=== PATIENT | female | born 1970 | race Caucasian/White ===

== ENCOUNTER 2016-05-12 06:20 | Emergency (ER) | payer MEDICAID, OTHER ==
[~2016-05-12] VITALS: Ht 160 cm; Wt 50.0 kg
[~2016-05-12 06:20] MED LIST: ADDE10; VIST25CA PO
[2016-05-12 06:23] VITALS: BP 136/79; PULSE 79; RESP 16; TEMP 97.7; O2SAT 100
--- NOTE | 2016-05-12 06:32 | PD ---
HPI Chief Complaint: Psychiatric Symptoms Time Seen by Provider: 06:27 Travel History International Travel<30 days: No Contact w/Intl Traveler<30days: No Traveled to known affect area: No History of Present Illness HPI 46 year-old woman, history of bipolar disorder, presents to the emergency department for bizarre behavior. Boyfriend called all enforcement today after patient was acting bizarrely. She reportedly was trying to make tea out of cigarette ashes and sugar. She was trying to light a cigarette on the stove highlight was out. She reportedly is not taking any medications because she is being studied for a trial drug. Patient cannot remember how she got here or why she is here. She denies any recent illness or injury. No other complaints. History Social History Alcohol Use: Yes Tobacco Use: Yes Allergies-Medications (Allergen,Severity, Reaction): Coded Allergies: Erythrocin (Verified Allergy, Mild, CP, NAUSEA, 10/19/15) Reported Meds & Prescriptions Reported Meds & Active Scripts Active Vistaril (Hydroxyzine Pamoate) 25 Mg Cap 25 Mg PO Q6HR FOR ITCHING Reported Adderall 10 mg (Dextroamphetamine/Amphetamine) 10 Mg Tab Review of Systems ROS Limitations: Clinical Condition Physical Exam Narrative GENERAL: Bizarre 46 year-old woman, no acute distress. SKIN: Warm and dry. HEAD: Atraumatic. Normocephalic. EYES: Pupils equal and round. No scleral icterus. No injection or drainage. ENT: No nasal bleeding or discharge. Mucous membranes pink and moist. NECK: Trachea midline. No JVD. CARDIOVASCULAR: Regular rate and rhythm. No murmur appreciated. RESPIRATORY: No accessory muscle use. Clear to auscultation. Breath sounds equal bilaterally. GASTROINTESTINAL: Abdomen soft, non-tender, nondistended. Hepatic and splenic margins not palpable. MUSCULOSKELETAL: No obvious deformities. No edema. NEUROLOGICAL: Awake and alert. Some confusion. No obvious cranial nerve deficits. Motor grossly within normal limits. Normal speech. PSYCHIATRIC: Confused, poor eye contact, some thought blocking. Flat affect. Data Data Last Documented VS Vital Signs Date Time Temp Pulse Resp B/P Pulse Ox O2 Delivery O2 Flow Rate FiO2 05/12/16 06:23 97.7 79 16 136/79 100 Orders Complete Blood Count With Diff (05/12/16 06:27) Comprehensive Metabolic Panel (05/12/16 06:27) Drug Screen, Random Urine (05/12/16 06:27) MDM Medical Decision Making Medical Screen Exam Complete: Yes Emergency Medical Condition: Yes Differential Diagnosis Bipolar disorder, psychosis, intoxication, drug use, other Narrative Course Medical decision making 46-year-old with history of bipolar cervical, presents with bizarre mental status changes. She appears psychotic with marked confusion, memory problems, follow up walking. No yasemin hallucinations or delusions. We'll check labs. Patient's medically clear for psychiatric evaluation. Mental health screening discussed with the patient. Psychiatric screen ordered. Romario Velazquez MD May 12, 2016 06:32
[2016-05-12 07:13] LABS: AMPHETAMINE, URINE NEG (NEG); BARBITURATES, URINE NEG (NEG); COCAINE, URINE NEG (NEG)
[2016-05-12 08:03] LABS: ALKALINE PHOSPHATASE 235 U/L (45-117); ALT (GPT) 95 U/L (10-53); ANION GAP 9 MEQ/L (5-15); AST (GOT) 151 U/L (15-37); BETA HCG QUANT LESS THAN 1 MIU/ML (0-5); BICARBONATE 21.1 MEQ/L (21.0-32.0); BLOOD UREA NITROGEN 14 MG/DL (7-18); CHLORIDE 105 MEQ/L (98-107); GLOMERULAR FILTRATION RATE 57 ML/MIN (>89); SODIUM (NA) 135 MEQ/L (136-145); TOTAL BILIRUBIN ADULT 0.8 MG/DL (0.2-1.0)
[2016-05-12 08:20] LABS: HEMATOCRIT 32.5 % (35.0-46.0); MEAN CORPUSCULAR HEMOGLOBIN 24.2 PG (27.0-34.0); PLATELET COUNT 75 TH/MM3 (150-450); RED BLOOD COUNT 4.57 MIL/MM3 (4.00-5.30); RED CELL DISTRIBUTION WIDTH 22.5 % (11.6-17.2); WHITE BLOOD COUNT 9.4 TH/MM3 (4.0-11.0)
[2016-05-12 08:23] LABS: HEMO FLAGS AUTO DIFF
[2016-05-12 09:16] LABS: BANDS 18 % (0-6); EOSINOPHILS 1 % (0-4); NEUTROPHIL # MANUAL DIFF 7.4 TH/MM3 (1.8-7.7); POLYS (SEG NEUTROPHILS) 61 % (16-70); WBC DIFF SAMPLE 100
[2016-05-12 09:17] LABS: PLATELET ESTIMATE SMEAR LOW (NORMAL); PLATELET MORPHOLOGY NORMAL (NORMAL)
[2016-05-12 09:18] LABS: SCAN/DIFF FINAL DIFF MANUAL; TARGET CELLS 1+ (NORMAL)
--- NOTE | 2016-05-12 09:29 | PD ---
Physical Exam Date Seen by Provider: May 12, 2016 Time Seen by Provider: 07:00 Narrative Patient signed out to me by Dr. Velazquez at 7 AM, awaiting medical clearance, lab work. Patient apparently has been behaving erratically at home. Denies any suicidal ideation. Physical exam is essentially unremarkable except for abnormal behavior. Laboratory Tests Test 05/12/16 05/12/16 05/12/16 06:50 07:15 08:10 Urine Benzodiazepines Screen POS (NEG) Urine Cannabinoids Screen POS (NEG) Sodium Level 135 MEQ/L (136-145) Creatinine 1.05 MG/DL (0.50-1.00) Estimat Glomerular Filtration 57 ML/MIN (>89) Rate Aspartate Amino Transf 151 U/L (15-37) (AST/SGOT) Alanine Aminotransferase 95 U/L (10-53) (ALT/SGPT) Alkaline Phosphatase 235 U/L (45-117) Albumin 2.2 GM/DL (3.4-5.0) Salicylates Level LESS THAN 1.7 MG/DL (2.8-20.0) Acetaminophen Level LESS THAN 2.0 MCG/ML (10.0-30.0) Hemoglobin 11.0 GM/DL (11.6-15.3) Hematocrit 32.5 % (35.0-46.0) Mean Corpuscular Volume 71.0 FL (80.0-100.0) Mean Corpuscular Hemoglobin 24.2 PG (27.0-34.0) Red Cell Distribution Width 22.5 % (11.6-17.2) Platelet Count 75 TH/MM3 (150-450) Band Neutrophils % 18 % (0-6) Platelet Estimate LOW (NORMAL) Target Cells 1+ (NORMAL) Lab work shows benzodiazepines and cannabis within her system. Abdomen is benign. Her LFT is mildly elevated and it was elevated in the past study as well. Patient is not in any distress, denies any ingestion. She is eating without issues. At this point, Tylenol and salicylate levels are also negligible. My plan would be to medically clear for psychiatric evaluation. She has been told to follow-up with her primary care physician regarding elevated liver enzymes. Data Data Last Documented VS Vital Signs Date Time Temp Pulse Resp B/P Pulse Ox O2 Delivery O2 Flow Rate FiO2 05/12/16 06:23 97.7 79 16 136/79 100 Orders Complete Blood Count With Diff (05/12/16 06:27) Comprehensive Metabolic Panel (05/12/16 06:27) Drug Screen, Random Urine (05/12/16 06:27) Alcohol (Ethanol) (05/12/16 06:27) Beta Hcg (Quant/Titer) (05/12/16 06:27) Psych Screen (05/12/16 06:27) Ed Urine Pregnancytest Poc (05/12/16 06:59) Salicylates (Aspirin) (05/12/16 08:09) Tylenol (Acetaminophen) (05/12/16 08:09) Labs Laboratory Tests Test 05/12/16 05/12/16 05/12/16 06:50 07:15 08:10 Urine Opiates Screen NEG Urine Barbiturates Screen NEG Urine Amphetamines Screen NEG Urine Benzodiazepines Screen POS Urine Cocaine Screen NEG Urine Cannabinoids Screen POS Sodium Level 135 MEQ/L Potassium Level 5.0 MEQ/L Chloride Level 105 MEQ/L Carbon Dioxide Level 21.1 MEQ/L Anion Gap 9 MEQ/L Blood Urea Nitrogen 14 MG/DL Creatinine 1.05 MG/DL Estimat Glomerular Filtration 57 ML/MIN Rate Random Glucose 87 MG/DL Calcium Level 8.6 MG/DL Total Bilirubin 0.8 MG/DL Aspartate Amino Transf 151 U/L (AST/SGOT) Alanine Aminotransferase 95 U/L (ALT/SGPT) Alkaline Phosphatase 235 U/L Total Protein 8.2 GM/DL Albumin 2.2 GM/DL Human Chorionic Gonadotropin, LESS THAN 1 Quant MIU/ML Salicylates Level LESS THAN 1.7 MG/DL Acetaminophen Level LESS THAN 2.0 MCG/ML Ethyl Alcohol Level LESS THAN 3 MG/DL White Blood Count 9.4 TH/MM3 Red Blood Count 4.57 MIL/MM3 Hemoglobin 11.0 GM/DL Hematocrit 32.5 % Mean Corpuscular Volume 71.0 FL Mean Corpuscular Hemoglobin 24.2 PG Mean Corpuscular Hemoglobin 34.0 % Concent Red Cell Distribution Width 22.5 % Platelet Count 75 TH/MM3 Mean Platelet Volume 9.0 FL Neutrophils (%) (Auto) % Lymphocytes (%) (Auto) % Monocytes (%) (Auto) % Eosinophils (%) (Auto) % Basophils (%) (Auto) % Neutrophils # (Auto) TH/MM3 Lymphocytes # (Auto) TH/MM3 Monocytes # (Auto) TH/MM3 Eosinophils # (Auto) TH/MM3 Basophils # (Auto) TH/MM3 CBC Comment AUTO DIFF Differential Total Cells 100 Counted Neutrophils % (Manual) 61 % Band Neutrophils % 18 % Lymphocytes % 16 % Monocytes % 4 % Eosinophils % 1 % Neutrophils # (Manual) 7.4 TH/MM3 Differential Comment FINAL DIFF MANUAL Atypical Lymphocytes % Platelet Estimate LOW Platelet Morphology Comment NORMAL Target Cells 1+ MDM Medical Record Reviewed: Yes Supervised Visit with ELENI: No Diagnosis Primary Impression: UNSP PSYCHOSIS NOT DUE TO A SUBSTANCE OR KNOWN PHYSIOL COND Additional Impression: Elevated liver enzymes Scripts Unable to Obtain Active Prescriptions or Reported Meds Disposition: 65 DISC TO PSYCH CARE FACILITY Condition: Stable Tariq Schulte MD May 12, 2016 09:29
[2016-05-12] MEDS: IBUPROFEN 400 MG TAB PO SCH ×2 (14:34→22:00)
[2016-05-12 15:05] VITALS: BP 158/76; PULSE 68; RESP 16; TEMP 96.6; O2SAT 99
[2016-05-12] MEDS ORDERED: OLANZapine ODT 5 MG TAB PO ONE (15:45)
[2016-05-12] MEDS ORDERED: XANA1TAB2 PO (17:19)
[2016-05-12] MEDS ORDERED: CYCL1TAB29 PO (17:20)
[2016-05-12] MEDS ORDERED: PHEN1LIQ60 (17:21)
[2016-05-12 22:21] VITALS: BP 116/74; PULSE 86; RESP 18; O2SAT 96
[2016-05-13 02:34] VITALS: BP 115/62; PULSE 80; RESP 18; O2SAT 97
[2016-05-13] MEDS: IBUPROFEN 400 MG TAB PO SCH (06:00)
[2016-05-13 06:14] VITALS: BP 117/58; PULSE 64; RESP 18; O2SAT 99
== END 2016-05-13 09:13 ==
LOC: NEPC 06:20 → NEPJ 05-13 09:13
DX: F29 Unspecified psychosis not due to a substance or known physiological condition (principal); R74.8 Abnormal levels of other serum enzymes; R41.0 Disorientation, unspecified; R41.82 Altered mental status, unspecified; Z72.0 Tobacco use; Z86.59 Personal history of other mental and behavioral disorders
CPT/HCPCS: 80053; 80307; 80320; 80329; 84702; 84703; 85007; 85027; 99283; G0480

== ENCOUNTER 2016-12-05 05:38 | Inpatient (IN) | payer MEDICAID, OTHER ==
[~2016-12-05] VITALS: Ht 152.4 cm; Wt 41.7 kg
[~2016-12-05 05:38] MED LIST changes: -ADDE10; +CYCL1TAB29 PO; +PHEN1LIQ60; -VIST25CA PO; +XANA1TAB2 PO
--- NOTE | 2016-12-05 05:50 | PD ---
HPI Chief Complaint: BA Time Seen by Provider: 05:49 Travel History International Travel<30 days: No Contact w/Intl Traveler<30days: No Traveled to known affect area: No History of Present Illness HPI This is a 46-year-old female presents under Madsen act initiated by the Police Department. According to the Madsen act form, "I responded to [id number] [employer] in reference to a mentally ill person. Contact was made with Miss Lucero who was standing in front of the neighbor's residence acting erratic. She had first said she was not going to talk to anyone until her transactional attorney was present. She was rambling on saying her boyfriend locked her out of her residence." Upon initial examination the patient is acting bizarre, agitated, hyper verbose. She is uncooperative with history or examination. She endorses crack abuse tonight, she otherwise provides no meaningful history. PFSH Past Medical History Blood Disorders: No Bipolar Disorder: Yes (peronality disorder) Anxiety: Yes Depression: Yes Cancer: No Cardiovascular Problems: No Diminished Hearing: No Endocrine: No Gastrointestinal Disorders: No Genitourinary: No Immune Disorder: No Musculoskeletal: No Neurologic: No Psychiatric: Yes Respiratory: No Past Surgical History Abdominal Surgery: Yes (hernia x 2) Gynecologic Surgery: Yes (D&C) Other Surgery: Yes Social History Alcohol Use: Yes (daily ) Tobacco Use: Yes Substance Use: Yes (MARAJUANA DAILY; XANAX DAILY; NYQUIL DAILY) Allergies-Medications (Allergen,Severity, Reaction): Coded Allergies: erythromycin base (Unverified Allergy, Mild, CP, NAUSEA, 12/05/16) Reported Meds & Prescriptions Reported Meds & Active Scripts Active Reported Xanax (Alprazolam) 1 Mg Tab 1 Mg PO BID PRN Review of Systems ROS Limitations: Psychotic Except as stated in HPI: all other systems reviewed are Neg Physical Exam Exam Limitations: Psychotic Narrative GENERAL: Disheveled and thin appearing female who is agitated, hyper verbose and anxious. Resultant tachycardia. SKIN: Warm and dry. HEAD: Atraumatic. Normocephalic. EYES: Pupils equal and round. No scleral icterus. No injection or drainage. ENT: No nasal bleeding or discharge. Mucous membranes pink and moist. NECK: Trachea midline. No JVD. CARDIOVASCULAR: Regular rate and rhythm. No murmur appreciated. RESPIRATORY: No accessory muscle use. Clear to auscultation. Breath sounds equal bilaterally. GASTROINTESTINAL: Abdomen soft, non-tender, nondistended. Hepatic and splenic margins not palpable. MUSCULOSKELETAL: No obvious deformities. No clubbing. No cyanosis. No edema. NEUROLOGICAL: Awake and alert. No obvious cranial nerve deficits. Motor grossly within normal limits. Pressured speech. PSYCHIATRIC: Elevated mood, agitated, anxious. Insight and judgment are impaired. Data Data Last Documented VS Vital Signs Date Time Temp Pulse Resp B/P (MAP) Pulse Ox O2 Delivery O2 Flow Rate FiO2 12/05/16 07:15 77 18 101/56 (71) 100 12/05/16 06:07 98.1 Orders Orders Complete Blood Count With Diff (12/05/16 05:41) Comprehensive Metabolic Panel (12/05/16 05:41) Ed Urine Pregnancytest Poc (12/05/16 05:41) Psych Screen (12/05/16 05:41) Drug Screen, Random Urine (12/05/16 05:41) Alcohol (Ethanol) (12/05/16 05:41) Salicylates (Aspirin) (12/05/16 05:41) Tylenol (Acetaminophen) (12/05/16 05:41) Olanzapine Inj (Zyprexa Inj) (12/05/16 06:00) Lorazepam Inj (Ativan Inj) (12/05/16 06:00) Sodium Chlor 0.9% 1000 Ml Inj (Ns 1000 M (12/05/16 05:58) ^ Sitter (12/05/16 06:26) Restraints Non-Violent DAHLIA.Q3H (12/05/16 06:26) Diet Regular Basic (12/05/16 Breakfast) Admit Order (Ed Use Only) (12/05/16 11:54) Labs Laboratory Tests Test 12/05/16 05:55 White Blood Count 11.8 TH/MM3 Red Blood Count 5.00 MIL/MM3 Hemoglobin 10.8 GM/DL Hematocrit 34.7 % Mean Corpuscular Volume 69.4 FL Mean Corpuscular Hemoglobin 21.6 PG Mean Corpuscular Hemoglobin Concent 31.1 % Red Cell Distribution Width 19.5 % Platelet Count 135 TH/MM3 Mean Platelet Volume 8.8 FL Neutrophils (%) (Auto) 68.6 % Lymphocytes (%) (Auto) 19.7 % Monocytes (%) (Auto) 10.4 % Eosinophils (%) (Auto) 0.9 % Basophils (%) (Auto) 0.4 % Neutrophils # (Auto) 8.1 TH/MM3 Lymphocytes # (Auto) 2.3 TH/MM3 Monocytes # (Auto) 1.2 TH/MM3 Eosinophils # (Auto) 0.1 TH/MM3 Basophils # (Auto) 0.0 TH/MM3 CBC Comment DIFF FINAL Differential Comment Blood Urea Nitrogen 10 MG/DL Creatinine 0.97 MG/DL Random Glucose 99 MG/DL Total Protein 8.1 GM/DL Albumin 3.6 GM/DL Calcium Level 8.8 MG/DL Alkaline Phosphatase 69 U/L Aspartate Amino Transf (AST/SGOT) 46 U/L Alanine Aminotransferase (ALT/SGPT) 39 U/L Total Bilirubin 1.1 MG/DL Sodium Level 136 MEQ/L Potassium Level 3.6 MEQ/L Chloride Level 106 MEQ/L Carbon Dioxide Level 18.3 MEQ/L Anion Gap 12 MEQ/L Estimat Glomerular Filtration Rate 62 ML/MIN Salicylates Level LESS THAN 1.7 MG/DL Urine Opiates Screen NEG Acetaminophen Level LESS THAN 2.0 MCG/ML Urine Barbiturates Screen NEG Urine Amphetamines Screen NEG Urine Benzodiazepines Screen POS Urine Cocaine Screen POS Urine Cannabinoids Screen POS Ethyl Alcohol Level LESS THAN 3 MG/DL MDM Medical Decision Making Medical Screen Exam Complete: Yes Emergency Medical Condition: Yes Medical Record Reviewed: Yes Differential Diagnosis Substance induced mood disorder, acute psychosis, bipolar disorder, schizoaffective disorder, delirium, encephalitis, meningitis Narrative Course 46-year-old female presents under Madsen act for bizarre behavior. She versus crack abuse tonight. She is quite agitated, anxious, hyperverbal was. Therefore 10 mg of Zyprexa IM were administered. Additional 1 L fluid, 0.5 mg of Ativan were added several minutes later. Chart review reveals previous visits in regards to substance/psychiatric visits. Mental health screening discussed with the patient. Psychiatric screen ordered. Drug screen positive for cocaine, benzodiazepines, cannabinoids. The patient is medically cleared for psychiatric disposition. Diagnosis Primary Impression: Drug-induced mood disorder Daniele Parks Dec 05, 2016 05:50
[2016-12-05] MEDS ORDERED: SODIUM CHLOR 0.9% 1000 ML INJ 1,000 ML IV SCH (05:58)
[2016-12-05] MEDS ORDERED: LORazepam 2 MG/ML VIAL IV PUSH ONE (06:00)
[2016-12-05] MEDS ORDERED: OLANZapine IM 10 MG VIAL IM ONE (06:00)
[2016-12-05 06:07] VITALS: BP 115/70; PULSE 85; RESP 20; TEMP 98.1; O2SAT 100
[2016-12-05 06:27] LABS: AUTOMATED NEUTROPHIL # 8.1 TH/MM3 (1.8-7.7); BASOPHIL % 0.4 % (0.0-2.0); EOSINOPHIL # 0.1 TH/MM3 (0-0.4); EOSINOPHIL % 0.9 % (0.0-4.0); HEMATOCRIT 34.7 % (35.0-46.0); HEMO FLAGS DIFF FINAL; LYMPH % 19.7 % (9.0-44.0); LYMPHOCYTE # 2.3 TH/MM3 (1.0-4.8); MEAN CELL VOLUME 69.4 FL (80.0-100.0); MEAN CORPUSCULAR HEMOGLOBIN 21.6 PG (27.0-34.0); MEAN CORPUSCULAR HGB CONC 31.1 % (32.0-36.0); MONO % 10.4 % (0.0-8.0); NEUT % 68.6 % (16.0-70.0); PLATELET COUNT 135 TH/MM3 (150-450); RED CELL DISTRIBUTION WIDTH 19.5 % (11.6-17.2); WHITE BLOOD COUNT 11.8 TH/MM3 (4.0-11.0)
[2016-12-05 07:15] VITALS: BP 101/56; PULSE 77; RESP 18; O2SAT 100
[2016-12-05 07:32] LABS: ANION GAP 12 MEQ/L (5-15); BICARBONATE 18.3 MEQ/L (21.0-32.0); BLOOD UREA NITROGEN 10 MG/DL (7-18); CHLORIDE 106 MEQ/L (98-107); GLOMERULAR FILTRATION RATE 62 ML/MIN (>89); POTASSIUM 3.6 MEQ/L (3.5-5.1); SODIUM (NA) 136 MEQ/L (136-145)
[2016-12-05 07:33] LABS: ALT (GPT) 39 U/L (10-53); AST (GOT) 46 U/L (15-37)
[2016-12-05 07:34] LABS: ALCOHOL LESS THAN 3 MG/DL (0-5)
[2016-12-05 07:36] LABS: ALKALINE PHOSPHATASE 69 U/L (45-117); TOTAL BILIRUBIN ADULT 1.1 MG/DL (0.2-1.0)
[2016-12-05 07:41] LABS: ACETAMINOPHEN LESS THAN 2.0 MCG/ML (10.0-30.0)
[2016-12-05 12:00] VITALS: BP 146/63; PULSE 90; RESP 18; O2SAT 100
[2016-12-05] MEDS ORDERED: ALUMINUM/MAGNESIUM/SIMETH 30 ML CUP PO PRN (12:00)
[2016-12-05] MEDS ORDERED: ACETAMINOPHEN 325 MG TAB PO PRN (12:00)
[2016-12-05] MEDS ORDERED: LORazepam 0.5 MG TAB PO PRN (12:00)
[2016-12-05] MEDS ORDERED: MAGNESIUM HYDROXIDE SUSP 30 ML CUP PO PRN (12:00)
[2016-12-05] MEDS ORDERED: LORazepam 2 MG/ML VIAL IM PRN ×2 (12:00)
--- NOTE | 2016-12-05 12:13 | HHI.HP ---
Provisional Diagnosis Admission Date [place] I. Brief psychotic disorder Certification of Person's Competence To Provide Express and Informed Consent I have personally examined Christy Lucero , a person being served at [facility] on, Dec 05, 2016 11:59. Express and informed consent means consent voluntarily given in writing, by a competent person, after sufficient explanation and disclosure of the subject matter involved to enable the person to make a knowing and willful decision without any element of force, fraud, deceit, duress, or other form of constraint or coercion. This person is 18 years of age or older, is not now known to be incompetent to consent to treatment with a guardian advocate, and does not have a health care surrogate or proxy currently making medical treatment decisions. I have found this person to be one of the following: [] Competent to provide express and informed consent, as defined above, for voluntary admission to this facility and is competent to provide express and informed consent for treatment. He/she has the consistent capacity to make well reasoned, willful, and knowing decisions concerning his or her medical or mental health treatment. The person fully and consistently understands the purpose of the admission for examination/placement and is fully capable of personally exercising all rights [place] [x] Incompetent to provide express and informed consent to voluntary admission, and this is incompetent to provide express and informed consent to treatment. The person must be transferred to involuntary status and a petition for a guardian advocate filed with the Circuit Court. [] Refusing to provide express and informed consent to voluntary admission but is competent to provide express and informed consent for treatment. The person must be discharged or transferred to involuntary status. Form shall be completed within 24 hours of a person's arrival at the receiving facility and filed in the clinical record of each person: 1. Admitted on a voluntary basis 2. Permitted to provide express and informed consent to his/her own treatment 3. Allowed to transfer from involuntary to voluntary status 4. Prior to permitting a person to consent to his or her own treatment after having been previously found incompetent to consent to treatment. History of Present Illness Capacity: Lacks Capacity HPI This is a 46-year-old female presenting under a Madsen act, with a history of bipolar disorder, currently very agitated and very psychotic. The patient is in restraints and has already received injections of antipsychotic medication. She is rambling incoherently and is a very poor historian. According to the Madsen act, law enforcement met her at a neighbor's residence, due to the patient 's erratic behavior. She told law enforcement she would not talk with anyone until her steam drier tender was present. She rambled about her boyfriend kicking her out of her residence. She was uncooperative with the examination by law enforcement and she is still uncooperative with this physician. Patient is positive for cocaine, marijuana and benzos. However, she is well aware of the psychotropic medications she has taken in the past, including lithium, for her bipolar disorder. She states she will not take psychotropic medications. She is aware of her diagnosis of bipolar disorder. At this point the patient is homeless. She is obviously unable to care for herself as she rambles incoherently and makes no sense. She is highly agitated and states she is being persecuted by someone named "Osmin". She demonstrates frequent looseness of associations as well as paranoid ideation. She is emotionally distraught, vacillating between crying and yelling. She is afraid of this hospital, this physician and medications. However, she cannot clearly or logically provide any plan to care for herself. Review of Systems Except as stated in HPI: all other systems reviewed are Neg Past Psych History Psychological trauma history Patient admits to a history of having bipolar disorder and admits to the history of taking psychotropic medication. However she is refusing to take medication at this time. Violence risk - others (6 mos) High. The patient is threatening and aggressive towards this physician. Violence risk - self (6 mos) High. The patient is quite unable to care for herself or make good decisions. She is impulsive and intrusive. Substance Abuse History Drugs/Alcohol past 12 months Patient admits to using cocaine and marijuana. She does not admit to using benzodiazepines. Past Family Social History Coded Allergies: erythromycin base (Unverified Allergy, Mild, CP, NAUSEA, 11/28/16) Reported Medications Lntjmxlazsvqt-Dblsgbtqgw-PA-Apap Liq (Nyquil Severe Cold/Flu Liq) 5-6.25-10-325 Mg/15 Ml Liq, 4 X DAY 05/12/16 Cyclobenzaprine (Flexeril) 10 Mg Tab, 10 MG PO BID for Muscle Spasm, #90 TAB 0 Refills 05/12/16 Alprazolam (Xanax) 1 Mg Tab, 1 MG PO BID Y for ANXIETY, TAB 0 Refills 05/12/16 [place] meds listed above. The patient is telling this physician that she takes no medicines. Family History Patient is unable to provide a family history. Social History The patient reports she lives in [facility]. She is unemployed. She appears to have a roommate but states she is being taken advantage of. She obviously uses illicit drugs. Patient's Strengths (min. 2) Resilient and has access to healthcare. Physical Exam GENERAL: SKIN: Warm and dry. HEAD: Normocephalic. EYES: No scleral icterus. No injection or drainage. NECK: Supple, trachea midline. No JVD or lymphadenopathy. CARDIOVASCULAR: Regular rate and rhythm without murmurs, gallops, or rubs. RESPIRATORY: Breath sounds equal bilaterally. No accessory muscle use. GASTROINTESTINAL: Abdomen soft, non-tender, nondistended. MUSCULOSKELETAL: No cyanosis, or edema. BACK: Nontender without obvious deformity. No CVA tenderness. Vital Signs Vital Signs Date Time Temp Pulse Resp B/P (MAP) Pulse Ox O2 Delivery O2 Flow Rate FiO2 12/05/16 07:15 77 18 (85) 100 12/05/16 06:07 98.1 Mental Status Examination Speech: Pressured, Rapid Orientation: Person, Place Memory: Impaired (describe) (unable to focus.) Thought Process: Loose Association Thought Content: Bizarre thinking, Paranoid Hallucination Type: None Attention and Concentration: Easily Distracted Suicidal Ideation: No Previous Suicide Attempts: No Homicidal Ideation: No Previous Homicide Attempts: No Insight: Poor Judgment: Impulsive, Poor, Unrealistic Affect: Anxious, Oppositional Mood: Appropriate, Oppositional, Anxious Motor Activity: Normal gait Assessment & Plan Problem List: (1) Brief psychotic disorder ICD Codes: F23 - Brief psychotic disorder Assessment & Plan Estimated LOS: days 46-year-old female with history of bipolar disorder that appears to be having a psychotic episode, possibly as a result of recent drug abuse. At this point the patient is obviously manic with loose associations, rapid and pressured speech, hysterical behavior and labile affect, disorganized , paranoid, impulsive and unable to care for herself. She is disorganized and confused and disoriented. For these reasons she is being admitted for evaluation and stabilization. The patient will have a CBC and comprehensive metabolic profile to determine if any infectious or metabolic process is causing or contributing to her psychosis. Additionally, we will check her vitamin B-12, vitamin D and thyroid stimulating hormone levels to determine if any abnormalities in these areas are causing or contributing to her psychosis. She will have an EKG to determine if she is at risk for cardiac conduction abnormalities if she is placed on antipsychotic medication. This physician spoke with the patient's nurse and learn the patient's erratic and psychotic behavior has been occurring for hours. The patient is not competent to provide informed consent and therefore this physician will document accordingly. Additionally, a second opinion will be sought for psychiatric civil commitment. Case management will be involved to gather more information and assist with disposition planning. Williams Mullen MD Dec 05, 2016 12:13
[2016-12-05 16:59] VITALS: BP 151/70; PULSE 94; RESP 18; TEMP 97.9; O2SAT 100
[2016-12-05] MEDS: LORazepam 1 MG TAB PO PRN ×2 (20:43→21:30)
[2016-12-06 05:55] VITALS: BP 131/87; PULSE 98; RESP 17; TEMP 98.1; O2SAT 99
[2016-12-06 07:59] LABS: AUTOMATED NEUTROPHIL # 2.3 TH/MM3 (1.8-7.7); BASOPHIL % 0.6 % (0.0-2.0); EOSINOPHIL # 0.1 TH/MM3 (0-0.4); EOSINOPHIL % 2.6 % (0.0-4.0); HEMATOCRIT 34.1 % (35.0-46.0); HEMO FLAGS DIFF FINAL; LYMPH % 34.6 % (9.0-44.0); LYMPHOCYTE # 1.6 TH/MM3 (1.0-4.8); MEAN CELL VOLUME 69.8 FL (80.0-100.0); MEAN CORPUSCULAR HEMOGLOBIN 21.6 PG (27.0-34.0); MEAN CORPUSCULAR HGB CONC 30.9 % (32.0-36.0); MONO % 9.9 % (0.0-8.0); NEUT % 52.3 % (16.0-70.0); PLATELET COUNT 101 TH/MM3 (150-450); RED BLOOD COUNT 4.88 MIL/MM3 (4.00-5.30); WHITE BLOOD COUNT 4.5 TH/MM3 (4.0-11.0)
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
[2016-12-06 08:29] LABS: ANION GAP 8 MEQ/L (5-15); AST (GOT) 41 U/L (15-37); BICARBONATE 23.2 MEQ/L (21.0-32.0); BLOOD UREA NITROGEN 11 MG/DL (7-18); CHLORIDE 107 MEQ/L (98-107); GLOMERULAR FILTRATION RATE 80 ML/MIN (>89); POTASSIUM 3.4 MEQ/L (3.5-5.1); SODIUM (NA) 138 MEQ/L (136-145)
[2016-12-06] MEDS ORDERED: FLUMAZENIL 0.5 MG/5 ML VIAL IV PUSH PRN (08:30)
[2016-12-06] MEDS ORDERED: LORazepam 2 MG/ML VIAL IV PUSH PRN ×4 (08:30→09:00)
[2016-12-06 08:31] LABS: ALT (GPT) 38 U/L (10-53)
[2016-12-06 08:56] LABS: ALKALINE PHOSPHATASE 60 U/L (45-117); HDL CHOLESTEROL 66.8 MG/DL (40.0-60.0); LDL CHOLESTEROL 56 MG/DL (0-99); TOTAL BILIRUBIN ADULT 0.5 MG/DL (0.2-1.0)
[2016-12-06] MEDS: REMOVE OLD PATCH T-DERMAL SCH (09:00)
[2016-12-06] MEDS ORDERED: LORazepam 2 MG TAB PO PRN (09:00)
[2016-12-06] MEDS: LORazepam 1 MG TAB PO PRN ×2 (09:06→20:55)
[2016-12-06] MEDS: NICOTINE 21 MG/24 HR PATCH T-DERMAL SCH (09:06)
[2016-12-06 10:57] LABS: HEMOGLOBIN A1a 1.6 %; HEMOGLOBIN A1b 1.4 %; HEMOGLOBIN Ao 86.3 %; HEMOGLOBIN P3 3.3 %
[2016-12-06 19:15] VITALS: BP 151/74; PULSE 90; RESP 18; TEMP 98.2; O2SAT 99
[2016-12-06 19:51] VITALS: BP 151/74; PULSE 90; RESP 18; TEMP 98.2; O2SAT 90
--- NOTE | 2016-12-06 20:01 | EKG ---
Date Performed: 12/05/2016 Time Performed: 13:42:45 PTAGE: 46 years EKG: Sinus rhythm NORMAL ECG PREVIOUS TRACING : 04/20/2015 10.59 Compared to prior tracing no significant change DOCTOR: Maxi Díaz Interpretating Date/Time 12/06/2016 19:59:48
[2016-12-06] MEDS: hydrOXYzine HCL 50 MG TAB PO PRN (20:55)
[2016-12-07] MEDS: LORazepam 1 MG TAB PO PRN ×2 (00:40→09:50)
[2016-12-07 05:38] VITALS: BP 129/83; PULSE 103; RESP 17; TEMP 98.1; O2SAT 99
[2016-12-07] MEDS ORDERED: POTASSIUM CHLORIDE 20 MEQ CONTROLLED RELEASE TAB PO ONE (08:00)
[2016-12-07] MEDS: REMOVE OLD PATCH T-DERMAL SCH (09:00)
[2016-12-07] MEDS: hydrOXYzine HCL 50 MG TAB PO PRN (09:50)
[2016-12-07] MEDS: NICOTINE 21 MG/24 HR PATCH T-DERMAL SCH (09:50)
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
== END 2016-12-07 13:15 | disposition home or self-care (01) | DRG 882 ==
LOC: NEPD 05:38 → NEDA 11:56 → H270 15:31
PROVIDERS: ADMIT Psychiatry & Neurology Psychiatry; ATTEND Psychiatry & Neurology Psychiatry
DX: F43.25 Adjustment disorder with mixed disturbance of emotions and conduct (principal); Z78.1 Physical restraint status; F14.10 Cocaine abuse, uncomplicated; F41.1 Generalized anxiety disorder; F31.9 Bipolar disorder, unspecified; Z59.0 Homelessness; Z72.0 Tobacco use; F12.90 Cannabis use, unspecified, uncomplicated; F19.10 Other psychoactive substance abuse, uncomplicated
CPT/HCPCS: 80053; 80061; 80307; 82306; 82607; 83036; 84443; 84703; 85025; 93005; 96361; 96372; 96374; J2060; J7030

== ENCOUNTER 2016-12-20 07:56 | Emergency (ER) | payer MEDICAID, OTHER ==
[2016-12-20 08:06] VITALS: BP 108/55; PULSE 83; RESP 20; TEMP 97.7; O2SAT 100
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
[2016-12-20 08:42] LABS: HEMATOCRIT 32.8 % (35.0-46.0); MEAN CELL VOLUME 71.1 FL (80.0-100.0); MEAN CORPUSCULAR HEMOGLOBIN 22.5 PG (27.0-34.0); MEAN CORPUSCULAR HGB CONC 31.6 % (32.0-36.0); PLATELET COUNT 45 TH/MM3 (150-450); RED BLOOD COUNT 4.61 MIL/MM3 (4.00-5.30); RED CELL DISTRIBUTION WIDTH 20.3 % (11.6-17.2); WHITE BLOOD COUNT 6.6 TH/MM3 (4.0-11.0)
[2016-12-20 08:44] LABS: HEMO FLAGS AUTO DIFF
[2016-12-20 09:29] LABS: BICARBONATE 19.4 MEQ/L (21.0-32.0); POTASSIUM 3.1 MEQ/L (3.5-5.1)
[2016-12-20 09:37] LABS: BANDS 19 % (0-6); EOSINOPHILS 1 % (0-4); MYELOCYTES 1 % (0-0); NEUTROPHIL # MANUAL DIFF 5.5 TH/MM3 (1.8-7.7); PLATELET ESTIMATE SMEAR LOW (NORMAL); PLATELET MORPHOLOGY NORMAL (NORMAL); POLYS (SEG NEUTROPHILS) 64 % (16-70); SCAN/DIFF FINAL DIFF MANUAL; WBC DIFF SAMPLE 100
[2016-12-20] MEDS ORDERED: POTASSIUM CHLORIDE 20 MEQ CONTROLLED RELEASE TAB PO ONE (10:00)
[2016-12-20 10:40] VITALS: BP 114/65; PULSE 74; RESP 16; O2SAT 98
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
[2016-12-20 16:48] VITALS: BP 114/65; PULSE 74; RESP 16; O2SAT 98
== END 2016-12-20 18:56 | disposition home or self-care (01) ==
LOC: NEPE 07:56 → NEPJ 18:56
DX: F14.14 Cocaine abuse with cocaine-induced mood disorder (principal); F31.9 Bipolar disorder, unspecified; F41.9 Anxiety disorder, unspecified; F17.200 Nicotine dependence, unspecified, uncomplicated; Z88.1 Allergy status to other antibiotic agents
CPT/HCPCS: 80048; 80307; 84703; 85007; 85027; 99283